=== PATIENT | male | born 1970 | race African-American/Black ===

== ENCOUNTER 2018-09-21 23:02 | Emergency (ER) | payer OTHER, SELFPAY ==
[~2018-09-21] VITALS: Ht 170.2 cm; Wt 82.1 kg
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
[2018-09-21] MEDS ORDERED: KETOROLAC 30 MG/ML VIAL. IM ONE (23:45)
[2018-09-21] MEDS ORDERED: AMOXICILLIN/K CLAV 875/125MG TABLET. PO ONE (23:45)
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
[2018-09-22] MEDS ORDERED: ORPH100T PO (01:21)
[2018-09-22] MEDS ORDERED: NAPR-514 PO (01:21)
[2018-09-22] MEDS ORDERED: CHLO15MO2 PO (01:27)
[2018-09-22] MEDS ORDERED: AMOX1TAB61 PO (01:27)
[2018-09-22 01:35] VITALS: BP 122/71
--- NOTE | 2018-09-22 06:04 | RAD ---
Bilateral elbows 3 views each. HISTORY: Pain Right elbow 3 views were taken of the right elbow. There is no acute fracture. Lateral view is obliquely positioned which limits evaluation. No definite osseous abnormality is noted. Left elbow 3 views were taken of the left elbow. There is slight spurring coronary process of the ulna. There is no fracture. Again the lateral view is obliquely positioned. There is slight calcification of the insertion of the Achilles tendon from mild calcific tendinitis. IMPRESSION: 1. Some limitations as the lateral views are obliquely positioned. 2. No acute fracture noted in the right elbow. 3. No acute fracture noted in the left elbow. Electronically signed by: Sameer Turner MD (09/22/2018 6:01 AM) [facility]
== END 2018-09-22 01:45 | disposition home or self-care (01) ==
LOC: ER 23:02
DX: S02.5XXA Fracture of tooth (traumatic), initial encounter for closed fracture (principal); S56.812A Strain of other muscles, fascia and tendons at forearm level, left arm, initial encounter; F10.920 Alcohol use, unspecified with intoxication, uncomplicated; V49.9XXA Car occupant (driver) (passenger) injured in unspecified traffic accident, initial encounter; Y93.89 Activity, other specified; Y92.410 Unspecified street and highway as the place of occurrence of the external cause; Y99.8 Other external cause status
CPT/HCPCS: 70450; 72125; 73080; 96372; 99284; J1885

== ENCOUNTER 2020-09-24 12:40 | Emergency (ER) | payer SELFPAY ==
[~2020-09-24] VITALS: Ht 170.2 cm; Wt 84.0 kg
[~2020-09-24 12:40] MED LIST: AMOX1TAB61 PO; CHLO15MO2 PO; NAPR-514 PO; ORPH100T PO
[2020-09-24] MEDS ORDERED: ORPHENADRINE CITRATE 60 MG/2 ML VIAL. ONE (15:10)
[2020-09-24] MEDS ORDERED: KETOROLAC 30 MG/ML VIAL. ONE (15:10)
[2020-09-24 16:07] LABS: BASO % 1 % (0-3); EOS # 0.1 x10^3/uL (0.0-0.7); EOS % 1 % (0-3); HEMATOCRIT 42.1 % (39.0-53.0); HEMOGLOBIN 14.3 g/dL (13.0-17.5); LYMPH # 1.6 x10^3/uL (1.0-4.8); LYMPH % 34 % (24-48); MEAN CORPUSCULAR HEMOGLOBIN 29 pg (25-35); MEAN CORPUSCULAR HGB CONC 34 g/dL (31-37); MEAN CORPUSCULAR VOLUME 86 fL (79-100); MONO # 0.4 x10^3/uL (0.0-1.1); MONO % 9 % (0-9); NEUT # 2.6 x10^3/uL (1.8-7.7); NEUT % 55 % (31-73); PLATELET COUNT 220 x10^3/uL (140-400); RED BLOOD COUNT 4.93 x10^6/uL (4.30-5.70); RED CELL DISTRIBUTION WIDTH 13.5 % (11.5-14.5); WHITE BLOOD COUNT 4.7 x10^3/uL (4.0-11.0)
[2020-09-24 16:34] LABS: ALBUMIN 4.2 g/dL (3.4-5.0); ALBUMIN/GLOBULIN RATIO 1.2 (1.0-1.7); CALCIUM 8.8 mg/dL (8.5-10.1); CREATININE 1.1 mg/dL (0.7-1.3); GFR 86.4; POTASSIUM 3.8 mmol/L (3.5-5.1); TOTAL BILIRUBIN 0.3 mg/dL (0.2-1.0); TOTAL PROTEIN 7.7 g/dL (6.4-8.2)
--- NOTE | 2020-09-24 16:56 | EKG ---
[facility] [address] [place] [address] Test Date: 2020-09-24 Test Time: 15:54:23 Pat Name: SAMIR EMERSON Department: Room: Gender: M [employer] Tender: : 1970 Requested By: ANGELITO ANSARI Order Number: [id number] Reading MD: Measurements Intervals [place] Rate: 79 P: 34 ME: 158 QRS: 26 QRSD: 84 T: 36 QT: 376 QTc: 432 Interpretive Statements SINUS RHYTHM QRS(T) CONTOUR ABNORMALITY CONSIDER ANTEROSEPTAL MYOCARDIAL DAMAGE POSSIBLY ABNORMAL ECG RI6.01 No previous ECG available for comparison
[2020-09-24] MEDS ORDERED: AMOX1TAB61 PO (17:08)
--- NOTE | 2020-09-24 17:08 | ED.ADGEN ---
Past Medical History Past Medical History: Alcoholism Past Surgical History: No Surgical History Smoking Status: Current Every Day Smoker Alcohol Use: Heavy Drug Use: None General Adult EDM: Chief Complaint: FACE PROBLEM HPI: HPI: Patient is a 50-year-old male presents to the emergency room complaining of dizziness, facial pressure, right ear pain. Patient states that this is been ongoing for quite some time and he had seen an ENT but they were too expensive. Patient does not currently have insurance. Patient states that he has been having the intermittent dizziness since he developed the right ear problem. He states the facial pressure is all over his face and has been getting worse over the last 2 to 3 weeks. He has been having nasal drainage. He denies any kind of fevers. He denies any Headaches. He states his dizziness does appear to be getting worse since he has started having drainage. Review of Systems: Review of Systems: Complete ROS is negative unless otherwise documented in HPI Current Medications: Current Medications Medications (Trade) Dose Ordered Sig/Noé Start Time Stop Time Status Last Admin Dose Admin Ketorolac Tromethamine (Toradol 30mg Vial) 30 mg STK-MED ONCE 09/24/20 15:10 09/24/20 15:10 DC Orphenadrine Citrate (Norflex) 60 mg STK-MED ONCE 09/24/20 15:10 09/24/20 15:10 DC Allergies: Allergies: Allergies Coded Allergies Type Severity Reaction Last Updated Verified No Known Drug Allergies 09/21/18 No Physical Exam: PE: General: Awake, alert, NAD. Well Nourished, well hydrated. Cooperative HEENT: Atraumatic, EOMI, PERRL, airway patent, moist oral mucosa, perforated right eardrum with minimal drainage, sinus tenderness Neck: Supple, trachea midline Respiratory: CTA bilaterally, normal effort, no wheezing/crackles CV: RRR, no murmur, cap refill <2 GI: Soft, nondistended, nontender, no masses MSK: No obvious deformities Skin: Warm, dry, intact Neuro: A&O x3, speech NL, sensory and motor grossly intact, no focal deficits Psych: Normal affect, normal mood, not suicidal or homicidal Current Patient Data: Labs: Laboratory Tests Test 09/24/20 15:52 White Blood Count 4.7 x10^3/uL (4.0-11.0) Red Blood Count 4.93 x10^6/uL (4.30-5.70) Hemoglobin 14.3 g/dL (13.0-17.5) Hematocrit 42.1 % (39.0-53.0) Mean Corpuscular Volume 86 fL (79-100) Mean Corpuscular Hemoglobin 29 pg (25-35) Mean Corpuscular Hemoglobin Concent 34 g/dL (31-37) Red Cell Distribution Width 13.5 % (11.5-14.5) Platelet Count 220 x10^3/uL (140-400) Neutrophils (%) (Auto) 55 % (31-73) Lymphocytes (%) (Auto) 34 % (24-48) Monocytes (%) (Auto) 9 % (0-9) Eosinophils (%) (Auto) 1 % (0-3) Basophils (%) (Auto) 1 % (0-3) Neutrophils # (Auto) 2.6 x10^3/uL (1.8-7.7) Lymphocytes # (Auto) 1.6 x10^3/uL (1.0-4.8) Monocytes # (Auto) 0.4 x10^3/uL (0.0-1.1) Eosinophils # (Auto) 0.1 x10^3/uL (0.0-0.7) Basophils # (Auto) 0.0 x10^3/uL (0.0-0.2) Sodium Level 138 mmol/L (136-145) Potassium Level 3.8 mmol/L (3.5-5.1) Chloride Level 103 mmol/L (98-107) Carbon Dioxide Level 28 mmol/L (21-32) Anion Gap 7 (6-14) Blood Urea Nitrogen 15 mg/dL (8-26) Creatinine 1.1 mg/dL (0.7-1.3) Estimated GFR (Cockcroft-Gault) 86.4 BUN/Creatinine Ratio 14 (6-20) Glucose Level 153 mg/dL (70-99) H Calcium Level 8.8 mg/dL (8.5-10.1) Total Bilirubin 0.3 mg/dL (0.2-1.0) Aspartate Amino Transferase (AST) 18 U/L (15-37) Alanine Aminotransferase (ALT) 35 U/L (16-63) Alkaline Phosphatase 61 U/L (46-116) Total Protein 7.7 g/dL (6.4-8.2) Albumin 4.2 g/dL (3.4-5.0) Albumin/Globulin Ratio 1.2 (1.0-1.7) Laboratory Tests 09/24/20 15:52 Laboratory Tests 09/24/20 15:52 Vital Signs: Vital Signs Date Time Temp Pulse Resp B/P (MAP) Pulse Ox O2 Delivery O2 Flow Rate FiO2 09/24/20 17:45 62 14 139/89 (106) 95 Room Air 09/24/20 14:21 98.7 98.7 EKG: EKG: [] Heart Score: C/O Chest Pain: N/A Risk Factors: Risk Factors: DM, Current or recent (<one month) smoker, HTN, HLP, family history of CAD, obesity. Risk Scores: Score 0 - 3: 2.5% MACE over next 6 weeks - Discharge Home Score 4 - 6: 20.3% MACE over next 6 weeks - Admit for Clinical Observation Score 7 - 10: 72.7% MACE over next 6 weeks - Early Invasive Strategies Radiology/Procedures: Radiology/Procedures: [] Course & Med Decision Making: Course & Med Decision Making Pertinent Labs and Imaging studies reviewed. (See chart for details) celint is a 50-year-old male who presents to the emergency room complaining of a perforated eardrum patient is a 50-year-old male presents to the emergency room complaining of dizziness, ear pain, facial pressure. Patient appears to have a sinus infection. He does have a perforated right eardrum. Due to patient's dizziness EKG and lab work were obtained and are normal. Dizziness is likely due to perforated eardrum. Will refer the patient to [facility] based clinics that can help him get into an ENT. We will place him on antibiotics to clear up sinus and ear infection. Patient's test results and vitals while in the ED were fully reviewed and discussed with the patient. Patient is stable and at this time does not need admission to the hospital. We have discussed strict return precautions and the importance of following up with their Primary Care Physician. Patient stated understanding and was given an opportunity to ask any questions. Patient is in agreement with plan. Tatum Disclaimer: Tatum Disclaimer: This electronic medical record was generated, in whole or in part, using a voice recognition dictation system. Departure Departure Impression: Primary Impression: Perforated eardrum Additional Impression: Otitis media Disposition: HOME / SELF CARE / HOMELESS Condition: STABLE Referrals: UNKNOWN PCP NAME (PCP) Patient Instructions: Eardrum Perforation, Otitis Media, Adult Scripts Amoxicillin/Potassium Clav (AUGMENTIN 875-125 TABLET) 1 Each Tablet 1 TAB PO Q12HR, #20 TAB Prov: ANGELITO ANSARI MD 09/24/20 Problem Qualifiers ANGELITO ANSARI MD September 24, 2020 17:08
[2020-09-24 17:45] VITALS: BP 139/89
== END 2020-09-24 17:52 | disposition home or self-care (01) ==
LOC: ER 12:40
DX: H72.91 Unspecified perforation of tympanic membrane, right ear (principal); H66.91 Otitis media, unspecified, right ear; F10.20 Alcohol dependence, uncomplicated; F17.200 Nicotine dependence, unspecified, uncomplicated; Y90.9 Presence of alcohol in blood, level not specified
CPT/HCPCS: 36415; 80053; 85025; 93005; 99284